=== PATIENT | male | born 1960 | race Two or more races ===

== ENCOUNTER 2017-09-16 11:27 | Day surgery (SDC) | payer BC ==
[2017-09-16] MEDS ORDERED: PROPOFOL 20 ML (14:18)
[2017-09-16] MEDS ORDERED: MIDAZOLAM 1 MG/ML 2 ML INJ (14:18)
[2017-09-16] MEDS ORDERED: FENTAnyl 50 MCG/ML VIAL (14:18)
== END 2017-09-16 15:00 | disposition home or self-care (01) ==
LOC: GIL 11:27
DX: Z12.11 Encounter for screening for malignant neoplasm of colon (principal); K64.8 Other hemorrhoids; I10 Essential (primary) hypertension; E03.9 Hypothyroidism, unspecified
CPT/HCPCS: 45378